=== PATIENT | female | born 1985 | race Hispanic/Latino ===

== ENCOUNTER 2017-09-14 09:19 | Day surgery (SDC) | payer BC ==
[2017-09-14 09:45] VITALS: BMI 25.1
[2017-09-14 09:56] LABS: BASO % 0.8 % (0.0-2.0); EOS # 0.1 K/uL (0.0-0.7); EOS % 1.5 % (0.0-4.0); HEMOGLOBIN 11.2 g/dL (12.0-16.0); LYMPH # 1.3 K/uL (1.0-4.3); LYMPH % 35.3 % (20.0-40.0); MEAN CELL VOLUME 76.5 fl (81.0-99.0); MEAN CORPUSCULAR HEMOGLOBIN 24.7 pg (27.0-31.0); MEAN CORPUSCULAR HGB CONC 32.3 g/dL (33.0-37.0); MEAN PLATELET VOLUME 8.5 fl (7.2-11.7); MONO # 0.4 K/uL (0.0-0.8); MONO % 10.1 % (0.0-10.0); NEUT % 52.3 % (50.0-75.0); NRBC % 0.1 % (0.0-0.0); RBC 4.55 Mil/uL (3.80-5.20); RED CELL DISTRIBUTION WIDTH 15.5 % (11.5-14.5); WHITE BLOOD COUNT 3.7 K/uL (4.8-10.8)
[2017-09-14] MEDS ORDERED: Propofol 10 mg/ml Inj (20 ML) ONE (11:13)
[2017-09-14] MEDS ORDERED: Rocuronium 10 mg/ml (5 ml) ONE (11:14)
[2017-09-14] MEDS ORDERED: ePHEDrine 50 mg/ml Inj ONE (11:14)
[2017-09-14] MEDS ORDERED: Succinylcholine 200 mg/10 ml Inj IV ONE (11:14)
[2017-09-14] MEDS ORDERED: Midazolam 2 MG/2 ML VIAL ONE (11:14)
[2017-09-14] MEDS ORDERED: Lactated Ringer's 1,000 ML IV ONE ×2 (11:50→12:00)
[2017-09-14] MEDS ORDERED: Dexamethasone 4 mg/1 ml ONE (12:11)
[2017-09-14] MEDS: Bupivacaine 0.5% Inj(30mL) ONE ×2 (12:16→12:30)
[2017-09-14] MEDS ORDERED: DiphenhydrAMINE 50 mg/ml Inj IVP PRN (13:53)
[2017-09-14] MEDS ORDERED: Lactated Ringer's 1,000 ML IV SCH (14:00)
[2017-09-14 14:19] VITALS: RESP 18
[2017-09-14] MEDS ORDERED: Oxycodone/Acetaminophen 5/325 mg Tab PO PRN (14:45)
[2017-09-14 17:34] VITALS: O2SAT 100
[2017-09-14] MEDS ORDERED: Oxycodone/Acetaminophen 5/325 mg Tab PO ONE (17:40)
[2017-09-14 19:54] VITALS: BP 125/60; PULSE 61; TEMP 97.8
--- NOTE | 2017-09-18 10:33 | PCM.OP ---
Operative Report - Operative Report Date of Surgery/Procedure: 09/14/17 Time of Surgery/Procedure: 08:00 Surgeon: Dr. Abraham Paredes [employer] Medic: Dr. Jett Cassidy Anesthesia/Sedation: general/Dr. Pham Pre-Operative Diagnosis: endometriosis and abdominal pain Post-Operative Diagnosis: shukri-rectal endometriosis Indication for Surgery: as above Operative Findings: shukri-rectal endometriosis Procedure/Operation Description: 1-excision perirectl ednometriosis. Brief Histroy: This is a 32 yearold woman already brought to the operating room by Dr. Cassidy when he noted shukri-rectal involvement of endometriosis. Intraoperative general surgery consultation was requested. Description of the Procedure: The patient had already had the robotic procedur intiated by Dr. Cassidy (separate dictation Dr. Cassidy). After taking control of the robotic console, using blunt and sharp dissection with the aid of electrocautery the area involving the rectum was incisded circumferentially. With meticulous attention to hemostasis the lesion was excised en-bloc and sent separately as a specimen to pathology. The area in question in the rectum was examined and hemostasis was deemed adeqaute. The operation was then turned back over to Dr. Cassidy (separate dictation Dr. Cassidy). Estimated Blood Loss: 5 cc Complications: none Discharge & Condition: stable
--- NOTE | 2017-09-19 19:20 | OP ---
PROCEDURE DATE: 09/14/2017 PREOPERATIVE DIAGNOSES: Pelvic pain, dysmenorrhea, dyspareunia, bladder pain, fibroid uterus, and rule out endometriosis. POSTOPERATIVE DIAGNOSES: Pelvic pain, dysmenorrhea, dyspareunia, bladder pain, fibroid uterus, rule out endometriosis, plus pelvic endometriosis stage II. PROCEDURE PERFORMED: Cystoscopy with bilateral ureteral catheterization and injection of IC-Green dye, diagnostic hysteroscopy, da Emilia robotic myomectomy, and excision of endometriosis. There is a separate dictation by Dr. Paredes, from General Surgery of excision of a perirectal endometriosis lesion. SURGEON: Jett Cassidy MD COMPENSATION AGENT: Abraham Paredes MD, from General Surgery. COMPLICATIONS: None. SAMPLES: A 7 cm uterine fibroid was sent to pathology, multiple samples of endometriosis including left pelvic sidewall, right pelvic sidewall, ovarian fossa, and posterior cervix, all sent to pathology and right perirectal. ESTIMATED BLOOD LOSS: 100 mL. INDICATION FOR THE PROCEDURE: The patient is a 32-year-old with a history of significant pelvic abdominal bladder pain, mostly localized on the right side. The patient failed multiple medical treatment as well as physical therapy. She was extensively evaluated with no solution to her problem. I evaluated the patient and she had sybil pelvic tenderness and peritoneal signs. She also had a fibroid that was partial intramural and that was lodged in the right ovarian fossa, therefore suggesting potential impingement and nerve compression. Prior to the surgery, the patient received extensive counseling with regards to the risks and benefits of the procedure, with regards to the likelihood that the procedure may identified and/or ameliorate her problem, and she was also informed about the risks and the benefits of the procedure. The patient also received a bladder prep. Prior to the surgery, the patient reaffirmed a desire to move forward with the surgery and signed the consent. DESCRIPTION OF PROCEDURE: After adequate anesthesia was obtained, the patient was placed in a dorsal lithotomy position with extreme care not to hyperextend or hyperflex her hips, also every area prone to pressure was padded. The patient was prepped and draped. The surgeons were gowned and gloved. A time-out was taken according to hospital policy. At this point, attention was in the vaginal area where a cystoscopy was performed revealing the bladder to be free of lesion, stones, or tumors. Both uterus were in the normal anatomical position. The left ureter was then cannulized with an open-ended 5-Wallisian catheter all the way to the distal ureter and 5 mL of IC-Green were injected. The opposite ureter was then also cannulated all the way to the distal ureter and 5 mL of IC-Green were also injected. The stents were removed. The cystoscope was removed and a 16-Wallisian catheter was inserted into the bladder. At this point, attention was in the vaginal area where a speculum was placed in the vagina. The anterior lip of the cervix was grasped, the cervix was gently dilated and the uterus examined hysteroscopically. The cavity appeared to be free of lesions and/or active tumors or bleeding. At this point, a uterine manipulator was placed in the uterus and attention was on the abdomen. An open laparoscopy was performed according to standard technique with extreme care given to the history of the patient's prior surgery. The peritoneum was entered in a blunt fashion and the cannula was then inserted. The abdomen was insufflated and the upper abdomen was visualized, appeared to be normal and free of endometriosis. The pelvis showed a large fibroid wedged in the posterior and right ovarian fossa leaving a large imprint in the peritoneum. After elevating the fibroid also evidence of endometriosis were seen. Both fallopian tubes appear to be normal as well as the ovaries. First part of the procedure involved dissecting the fibroid off. This was done by making an incision and progressively dissecting off the fibroid, which was partially exophytic and partially intramural. The fibroid was excised and the incision on the uterus was closed with a running suture of 2-0 V-lock, which was perfectly hemostatic in a baseball fashion. At this point, the attention was in the pelvis where areas of endometriosis were identified on the left hand side where after identifying the ureter utilizing fluorescent technology, the ureter was lateralized and an area of endometriosis was dissected on the left pelvic side. An extensive area of endometriosis was also dissected on the posterior cervix, and similarly on the right side of the pelvis, again a dissection was performed excising an area of peritoneal endometriosis on the right hand side. Dr. Paredes from General Surgery was asked to remove an area in the right perirectal area of endometriosis, which had the classic black powder burn type lesion. He will dictate that separately. At this point, after all this was done, the pelvis was irrigated, appear to be free of bleeding and adhesions. The robot was undocked. The fibroid was placed in an Endobag and was extracted through the umbilical incision unruptured without any cuts. The incision was extended in the umbilicus in order to allow for the fibroid to be removed intact. The incision at this point was closed with the running suture of 0 PDS. The skin incision was closed with 4-0 Monocryl. The instruments were removed from the vagina. The patient was then woken up and taken to recovery room in excellent condition. At the end of the procedure, all tapes and instrument counts were correct. Jett Cassidy MD
== END 2017-09-14 20:10 | disposition home or self-care (01) ==
LOC: H.OPSURG 09:19
PROVIDERS: ATTEND Obstetrics & Gynecology Reproductive Endocrinology
DX: N80.0 Endometriosis of uterus (principal); D25.9 Leiomyoma of uterus, unspecified; N80.1 Endometriosis of ovary; N80.5 Endometriosis of intestine; N94.6 Dysmenorrhea, unspecified; R10.2 Pelvic and perineal pain
CPT/HCPCS: 22901; 36415; 58555; 58662; 85025; 86850; 86900; 88305; C1729; J0330; J1100; J1170; J2001; J2250; J2405; J2704; J2765; J3010; J7030; J7040; J7120